=== PATIENT | male | born 1955 | race Caucasian/White ===

== ENCOUNTER 2017-12-16 13:21 | Outpatient (CLI) | payer OTHER | END 2017-12-16 19:47 | disposition home or self-care (01) | LOC: SRD 13:21 | PROVIDERS: ATTEND Family Medicine | DX: M47.897 Other spondylosis, lumbosacral region (principal); M16.11 Unilateral primary osteoarthritis, right hip; M51.36 Other intervertebral disc degeneration, lumbar region; M48.07 Spinal stenosis, lumbosacral region; M40.46 Postural lordosis, lumbar region; T14.90XA Injury, unspecified, initial encounter; X58.XXXA Exposure to other specified factors, initial encounter; Y93.89 Activity, other specified; Y92.89 Other specified places as the place of occurrence of the external cause; Y99.8 Other external cause status | CPT/HCPCS: 72110; 73502 ==